=== PATIENT | female | born 1970 ===

== ENCOUNTER 2025-01-18 11:02 | Outpatient (CLI) | payer BC, SELFPAY ==
--- NOTE | 2025-01-18 11:15 | CRLHL7_ITS ---
For Patients: As a result of the Century Cures Act, medical imaging exams and procedure reports are released immediately into your electronic medical record. You may view this report before your referring provider. If you have questions, please contact your health care provider. INDICATION: Generalized postprandial abdominal pain COMPARISON: none TECHNIQUE: Real time arellano scale imaging and color Doppler analysis was performed of the right upper quadrant. FINDINGS: The patient`s liver is of normal size and has increased echogenicity. There is a normal appearance of the hepatic IVC and proximal abdominal aorta. There is no evidence of ascites. The gallbladder is of normal size and there is no evidence of intraluminal stones or sludge. The gallbladder wall measures 2 mm in thickness. The common bile duct is of normal size and measures 2 mm in diameter at the level of the john hepatis. The pancreas appears normal. There is no evidence of a stone or hydronephrosis within the right kidney. The right kidney measures 11.1 cm in length. IMPRESSION: Hepatic steatosis. Remainder normal. Dictated by Mason Bejarano MD @ 01/18/2025 12:17:23 PM (Electronically Signed)
== END 2025-01-18 11:03 | disposition home or self-care (01) ==
LOC: US 11:13
PROVIDERS: PCP Family Medicine; Visit Provider Family Medicine
DX: R10.84 Generalized abdominal pain (principal); K76.0 Fatty (change of) liver, not elsewhere classified
CPT/HCPCS: 76705